=== PATIENT | female | born 1990 ===

== ENCOUNTER 2023-01-17 11:48 | Emergency (ER) | payer BC, SELFPAY ==
--- NOTE | ~2023-01-17 | US_ITS ---
EXAMINATION: US OBSTETRICAL ULTRASOUND CLINICAL INFORMATION: Pelvic pain. Question ectopic . COMPARISON: None available. LMP: November 30, 2022. Gestational age by maternal dates is 6 weeks 6 days. Estimated date of delivery by maternal dates is September 06, 2023. TECHNIQUE: Ultrasound of the maternal pelvis is performed using transabdominal and transvaginal transducers. Transvaginal imaging is performed due to inadequate visualization transabdominally. M-mode Doppler is also performed. FINDINGS: There is a single intrauterine gestational sac with visible yolk sac, embryo/fetus, and cardiac activity. There is no significant subchorionic hemorrhage or hematoma. HR: 96 beats per minute. CRL (crown rump length): 0.25 cm (5 weeks 6 days +/- 4 days). JAVIER (estimated date of delivery): September 13, 2023 +/- 4 days. Gestational sac, yolk sac, and pole visualized. No multiple gestations identified. MATERNAL ADNEXA: The right maternal ovary measures 3.5 x 2.4 x 2.4 cm. 2.2 x 1.0 x 1.7 cm corpus luteum cyst present. The left maternal ovary measures 1.9 x 1.1 x 1.1 cm. No abnormal left ovarian findings. There is no significant maternal adnexal mass. No maternal pelvic ascites. US/US OB pelvic and transvaginal IMPRESSION: 1. Single intrauterine gestation with ultrasound gestational age of 5 weeks 6 days +/- 4 days. 2. Estimated date of delivery is September 13, 2023 +/- 4 days. 3. No maternal adnexal mass or pelvic ascites. 4. bradycardia.
--- NOTE | ~2023-01-17 | US_ITS ---
ULTRASOUND ABDOMEN LIMITED, RIGHT LOWER QUADRANT Clinical indication: Right lower quadrant pain. Evaluate for appendicitis. Comparison: None. Technique: Sagittal and transverse scans of the right lower quadrant were performed using a linear high resolution transducer with graded compression technique, olson scale and color Doppler evaluation. FINDINGS: The appendix could not be confidently visualized. No free fluid in the right lower quadrant. US/US appendix Impression: Nondiagnostic ultrasound for appendicitis. Appendix not visualized. Recommend close clinical followup. Contrast enhanced CT scan may be considered for further evaluation.
--- NOTE | ~2023-01-17 | US_ITS ---
EXAMINATION: US RETROPERITONEAL LIMITED (RENAL ONLY) CLINICAL INFORMATION: Bilateral flank tenderness. COMPARISON: None available. TECHNIQUE: Real-time imaging of the kidneys. FINDINGS: RIGHT KIDNEY: 11.8 x 4.0 x 4.6 cm (SAG x AP x TRV). The kidney is normal in size, contour, and echogenicity. Renal cortical thickness is normal. No calculi or focal parenchymal lesions. No hydronephrosis. LEFT KIDNEY: 11.3 x 6.0 x 5.2 cm (SAG x AP x TRV). The kidney is normal in size, contour, and echogenicity. Renal cortical thickness is normal. No calculi or focal parenchymal lesions. No hydronephrosis. US/US renal BI IMPRESSION: Unremarkable examination.
[2023-01-17 11:55] VITALS: BP 106/71; PULSE 87; RESP 18; TEMP 37; O2SAT 100; BMI 19.3
--- NOTE | 2023-01-17 11:59 | ED.GENADULT ---
HPI - General Adult General Chief complaint: Urogenital-Female Stated complaint: Ectopic ? 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 She states that her pain has been present since she determined that she was but it has worsened over the past few days. She reports external vaginal itching and burning radiating into vagina and perineal area. She also reports dysuria. She reports right lower back pain and sweats/chills, states I never get a fever. She denies any rashes or lesions to groin. Does report increased vaginal discharge with slight foul smell, was told by OIL SPRAYER that increased discharge was normal. Denies vaginal bleeding. Has not had prior ultrasound. She reports mild nausea, denies vomiting or diarrhea. Reports diffuse abdominal pain. MD complaint: vaginal pain Onset (ago): week(s) Location: genitals Radiation: back Severity scale (1-10): 10 Quality: burning Pain Consistency: constant Relieving factors: none Exacerbating factors: movement Associated symptoms: nausea/vomiting (+ nausea, denies vomiting) Treatments prior to arrival: none Related Data Previous Rx's Medication Instructions Recorded cephalexin 500 mg capsule 500 mg PO QID #28 caps 01/17/23 clotrimazole 1 % vaginal cream 1 appful vaginal BEDTIME 7 days 01/17/23 #45 grams Allergies Allergy/AdvReac Type Severity Reaction Status Date / Time chlorhexidine Allergy Rash Verified 01/17/23 11:55 ibuprofen Allergy Vomiting Verified 01/17/23 11:55 Iodinated Contrast Media Allergy Rash Verified 01/17/23 11:55 [Contrast Dye] nitrofurantoin Allergy Unknown Verified 01/17/23 11:55 [From Macrobid] Review of Systems Review of Systems: As per HPI. Yes all other systems are reviewed and are negative Constitutional: Constitutional: Reports as per HPI PMFSH Social History Social History Alcohol intake: never Smoked in Last 30 Days: No Advance Directives: No Advance Directives Information Provided: No Patient : Yes Physical Exam ED Vital Signs: Vital Signs - 24 hr 01/17/23 11:55 01/17/23 12:20 01/17/23 14:29 Temperature 98.6 F 98.4 F Pulse Rate 87 77 78 Respiratory Rate 18 18 10 L Blood Pressure 106/71 114/62 99/59 L Pulse Oximetry 100 100 99 Oxygen Delivery Method Room Air Room Air Room Air 01/17/23 18:00 Temperature Pulse Rate 75 Respiratory Rate 18 Blood Pressure 101/57 L Pulse Oximetry 98 Oxygen Delivery Method Room Air BMI result Body Mass Index 19.3 Vital signs have been reviewed and appear to be correct. Blood pressure normal. Heart rate normal. Respiratory rate normal. Temperature normal. Oxygen saturation normal. Const General: cooperative and healthy appearing; No comfortable Orientation/consciousness: oriented to person, oriented to place, oriented to time and patient oriented x3 Limitations: no limitations HENMT Head: Yes normocephalic and Yes atraumatic Ears: external ears normal General nose exam: Normal external nose present Face and sinus: Yes face symmetric Mouth: oropharynx normal and moist mucous membranes Throat: Yes uvula midline Eyes Pupils: Equal, round and reactive pupils present Neck Neck: Yes normal visual inspection and Yes supple Resp Effort & Inspection: normal respiratory effort and able to speak in complete sentences Auscultation: clear to auscultation bilaterally Cardio Rate: regular rate Rhythm: regular rhythm Heart sounds: S1 normal heart sound present and S2 normal heart sound present GI Other: Chaperoned by TOM Licona. Inspection: Yes normal to inspection Palpation (GI): Soft to palpation and Tenderness to palpation present (GI) in the LLQ, in the RLQ, in the LUQ and in the RUQ; with no rebound tenderness Auscultation: normoactive bowel sounds Other: Chaperoned by TOM Licona. Unable to perform bimanual exam due to patient discomfort. General: Yes no CVA tenderness External Female Exam: normal external appearance and No lesion Speculum Exam - Vagina: abnormal vaginal discharge yellow; not malodorous and not boody, erythematous, no lacerations, no lesions, No vaginal bleeding, No tissue present in vagina, no masses, no swelling and tenderness bilaterally Speculum Exam - Cervix: Cervical os closed, Abnormal cervical discharge present yellow; not bloody, without tissue and malodorous, no lesions, no masses and Cervical tenderness present Bimanual exam- vagina & uterus: Cervical tenderness present OB/external & speculum: no tissue noted in vagina and vaginal bleeding Back/Spine/Pelvis Back: no CVA tenderness Skin General skin exam: elasticity normal and turgor normal Neuro General: oriented to person, oriented to place, oriented to time, patient oriented x3, moves all extremities, no focal motor deficits and CN's II-XI intact bilaterally Cranial nerves: Yes Equal, round and reactive pupils present Cognition (Neuro): normal cognition Extrem General: Yes full ROM, Yes no pedal edema and Yes no calf tenderness Psych Mental Status: mental status grossly normal Affect: normal affect Thought process: Normal thought process present Course Course Course Narrative: RmE: 7 weeks pregant . Presents to the ED for low abdominal crampin and vaginal discomfort for a few days. no vaginal bleeding. patient has no yet had ultrasound. Labs and Abdominal Ultraouns ordered. 13:56 Trace leukocytes on UA, no nitrites, no bacteria seen, unlikely UTI, negative trichamonas. Awaiting US results. 14:26 FINDINGS: There is a single intrauterine gestational sac with visible yolk sac, embryo/fetus, and cardiac activity.? There is no significant subchorionic hemorrhage or hematoma. HR:? 96 beats per minute. CRL (crown rump length): ? 0.25 cm (5 weeks 6 days +/- 4 days). JAVIER (estimated date of delivery):? September 13, 2023 +/- 4 days. ? Gestational sac, yolk sac, and pole visualized. No multiple gestations identified. MATERNAL ADNEXA: ? ? The right maternal ovary measures 3.5 x 2.4 x 2.4 cm.? 2.2 x 1.0 x 1.7 cm corpus luteum cyst present. The left maternal ovary measures 1.9 x 1.1 x 1.1 cm.? No abnormal left ovarian findings. There is no significant maternal adnexal mass.? No maternal pelvic ascites. US/US OB pelvic and transvaginal IMPRESSION: 1. Single intrauterine gestation with ultrasound gestational age of? 5 weeks 6 days +/- 4 days. 2. Estimated date of delivery is September 13, 2023 +/- 4 days. 3. No maternal adnexal mass or pelvic ascites. 4. bradycardia. [place] text to Dr. Carpenter. He feels PID is unlikely, recommends further imaging to rule out appendicitis/nephrolithiasis. 16:43 FINDINGS: RIGHT KIDNEY: 11.8 x 4.0 x 4.6 cm (SAG x AP x TRV). The kidney is normal in size, contour, and echogenicity. Renal cortical thickness is normal. No calculi or focal parenchymal lesions. No hydronephrosis. LEFT KIDNEY: 11.3 x 6.0 x 5.2 cm (SAG x AP x TRV). The kidney is normal in size, contour, and echogenicity. Renal cortical thickness is normal. No calculi or focal parenchymal lesions. No hydronephrosis. US/US renal BI IMPRESSION: Unremarkable examination. FINDINGS: The appendix could not be confidently visualized. No free fluid in the right lower quadrant. US/US appendix Impression: ? Nondiagnostic ultrasound for appendicitis.? Appendix not visualized.? ? Recommend close clinical followup. Contrast enhanced CT scan may be considered for further evaluation. ? Low suspicion for appendicitis as patient is afebrile, no leukocytosis. Patient now disclosing to RN that she has chronic constipation and has also been taking vitamins with iron. She has been using a stool softner but has continued to have constipation. [place] text to Dr. Carpenter with results. He states he will come to ED for evaluation. 18:26 Dr. Carpenter recommends treating for UTI given dysuria and trace leukocytes on UA. Prescribed Keflex. He also recommends treating for vulvovaginal candidiasis., prescribed clotrimazole vaginal cream. Return/follow up precautions discussed with patient for threatened . All questions answered and all results reviewed with patient. She is agreeable to plan and will follow up with her OIL SPRAYER in [place]. 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 On exam patient appears uncomfortable, awake, A+Ox3, VS WNL, normal neurological exam without focal deficits, abdomen soft, diffusely tender, bilateral CVA tenderness, cervix tender with yellow discharge, no rashes or lesions. Concern for UTI/pyelonephritis, STI, uterine , possible ectopic , ovarian cyst or torsion, TOA, constipation. Less likely appendicitis, diverticulitis. Plan: labs, UA, pelvic exam, CT NG, trichomonas, BV, ultrasound Please refer to course for remaining clinical decision making. Differential Diagnosis Differential Diagnoses: The differential diagnosis associated with the presentation includes As above Consult Healthcare Provider Management of the patient was discussed with: Mixer Blender (Dr. Carpenter) Lab Data [facility] Lab Attestation statement: I reviewed the patient's lab results. 01/17/23 12:14 01/17/23 12:14 Labs: Lab Results 01/17/23 01/17/23 01/17/23 Range/Units 12:14 12:14 12:14 WBC 4.9 (4.8-10.8) X10*3/uL RBC 3.94 L (4.20-5.50) X10*6/uL Hgb 12.2 (12.0-16.0) g/dl Hct 37.0 (37.0-47.0) % MCV 93.9 (80.0-98.0) fL MCH 31.0 (27.0-33.0) pg MCHC 33.0 (31.0-35.0) g/dl RDW 11.9 (11.0-16.0) % Plt Count 227 (160-400) X10*3/uL MPV 9.3 L (9.4-12.3) fL Immature Gran % (Auto) 0.4 (0.0-0.4) % Neut % (Auto) 60.8 (45-73) % Lymph % (Auto) 28.6 (20-40) % [place] % (Auto) 8.4 (2-11) % Eos % (Auto) 0.8 (0-4) % Baso % (Auto) 1.0 (0-2) % Lymph # (Auto) 1.4 (1.2-4.9) X10*3/uL [place] # (Auto) 0.4 (0.1-1.2) X10*3/uL Eos # (Auto) 0.0 (0.0-0.4) X10*3/uL Baso # (Auto) 0.1 (0.0-0.2) X10*3/uL Abs Immat Gran (auto) 0.02 (0.00-0.03) X10*3/uL Absolute Neuts (auto) 3.0 (2.0-8.3) x10*3/uL Absolute Nucleated RBC 0.000 (0.0-0.012) X10*3/uL Nucleated RBC % (auto) 0.0 (0.0-0.2) /100WBC PT 11.5 (10.0-13.1) SEC INR 1.0 (0.9-1.1) APTT 32.7 (26.0-36.4) SEC Sodium 141 (135-145) mmol/L Potassium 3.8 (3.3-5.1) mmol/L Chloride 108 (96-108) mmol/L Carbon Dioxide 25 (22-29) mmol/L Anion Gap 12 (12-20) BUN 6 L (9-16) mg/dL Creatinine 0.63 (0.5-1.4) mg/dL Estim Creat Clear Calc 115.2 Estimated GFR > 60 Random Glucose 89 (60-115) mg/dL Calcium 9.7 (8.4-10.2) mg/dL Total Bilirubin 2.2 H (0.0-1.0) mg/dL AST 17 (5-31) U/L ALT 14 (0-31) U/L Alkaline Phosphatase 47 (39-117) U/L Total Protein 7.4 (6.5-8.0) g/dL Albumin 4.5 (3.5-5.0) g/dL Beta HCG, Quant 66876 mIU/mL Urine Color Urine Appearance Urine pH (5.0-9.0) Ur Specific [place] (1.005-1.025) Urine Protein (Neg-Trace) mg/dL Urine Glucose (UA) (Negative) mg/dL Urine Ketones (Negative) mg/dL Urine Blood (Negative) Urine Nitrite (Negative) Ur Leukocyte Esterase (Negative) Urine RBC (0-2) /HPF Urine WBC (0-5) /HPF Ur Squamous Epith Cells (0-2) /HPF Urine Bacteria (None Seen) Hyaline Casts (0-2) /LPF Urine Test (NEGATIVE) Chlam trachomat DNA PCR (Not Detect.) N.gonorrhoeae DNA (PCR) (Not Detect.) Blood Type 01/17/23 01/17/23 01/17/23 Range/Units 12:14 13:29 13:29 WBC (4.8-10.8) X10*3/uL RBC (4.20-5.50) X10*6/uL Hgb (12.0-16.0) g/dl Hct (37.0-47.0) % MCV (80.0-98.0) fL MCH (27.0-33.0) pg MCHC (31.0-35.0) g/dl RDW (11.0-16.0) % Plt Count (160-400) X10*3/uL MPV (9.4-12.3) fL Immature Gran % (Auto) (0.0-0.4) % Neut % (Auto) (45-73) % Lymph % (Auto) (20-40) % [place] % (Auto) (2-11) % Eos % (Auto) (0-4) % Baso % (Auto) (0-2) % Lymph # (Auto) (1.2-4.9) X10*3/uL [place] # (Auto) (0.1-1.2) X10*3/uL Eos # (Auto) (0.0-0.4) X10*3/uL Baso # (Auto) (0.0-0.2) X10*3/uL Abs Immat Gran (auto) (0.00-0.03) X10*3/uL Absolute Neuts (auto) (2.0-8.3) x10*3/uL Absolute Nucleated RBC (0.0-0.012) X10*3/uL Nucleated RBC % (auto) (0.0-0.2) /100WBC PT (10.0-13.1) SEC INR (0.9-1.1) APTT (26.0-36.4) SEC Sodium (135-145) mmol/L Potassium (3.3-5.1) mmol/L Chloride (96-108) mmol/L Carbon Dioxide (22-29) mmol/L Anion Gap (12-20) BUN (9-16) mg/dL Creatinine (0.5-1.4) mg/dL Estim Creat Clear Calc Estimated GFR Random Glucose (60-115) mg/dL Calcium (8.4-10.2) mg/dL Total Bilirubin (0.0-1.0) mg/dL AST (5-31) U/L ALT (0-31) U/L Alkaline Phosphatase (39-117) U/L Total Protein (6.5-8.0) g/dL Albumin (3.5-5.0) g/dL Beta HCG, Quant mIU/mL Urine Color Yellow Urine Appearance Clear Urine pH 6.5 (5.0-9.0) Ur Specific [place] <= 1.005 (1.005-1.025) Urine Protein Negative (Neg-Trace) mg/dL Urine Glucose (UA) Negative (Negative) mg/dL Urine Ketones Negative (Negative) mg/dL Urine Blood Negative (Negative) Urine Nitrite Negative (Negative) Ur Leukocyte Esterase Trace H (Negative) Urine RBC 0-2 (0-2) /HPF Urine WBC 6-10 H (0-5) /HPF Ur Squamous Epith Cells 0-2 (0-2) /HPF Urine Bacteria None Seen (None Seen) Hyaline Casts 0-2 (0-2) /LPF Urine Test POSITIVE H (NEGATIVE) Chlam trachomat DNA PCR (Not Detect.) N.gonorrhoeae DNA (PCR) (Not Detect.) Blood Type O Positive 01/17/23 Range/Units 13:29 WBC (4.8-10.8) X10*3/uL RBC (4.20-5.50) X10*6/uL Hgb (12.0-16.0) g/dl Hct (37.0-47.0) % MCV (80.0-98.0) fL MCH (27.0-33.0) pg MCHC (31.0-35.0) g/dl RDW (11.0-16.0) % Plt Count (160-400) X10*3/uL MPV (9.4-12.3) fL Immature Gran % (Auto) (0.0-0.4) % Neut % (Auto) (45-73) % Lymph % (Auto) (20-40) % [place] % (Auto) (2-11) % Eos % (Auto) (0-4) % Baso % (Auto) (0-2) % Lymph # (Auto) (1.2-4.9) X10*3/uL [place] # (Auto) (0.1-1.2) X10*3/uL Eos # (Auto) (0.0-0.4) X10*3/uL Baso # (Auto) (0.0-0.2) X10*3/uL Abs Immat Gran (auto) (0.00-0.03) X10*3/uL Absolute Neuts (auto) (2.0-8.3) x10*3/uL Absolute Nucleated RBC (0.0-0.012) X10*3/uL Nucleated RBC % (auto) (0.0-0.2) /100WBC PT (10.0-13.1) SEC INR (0.9-1.1) APTT (26.0-36.4) SEC Sodium (135-145) mmol/L Potassium (3.3-5.1) mmol/L Chloride (96-108) mmol/L Carbon Dioxide (22-29) mmol/L Anion Gap (12-20) BUN (9-16) mg/dL Creatinine (0.5-1.4) mg/dL Estim Creat Clear Calc Estimated GFR Random Glucose (60-115) mg/dL Calcium (8.4-10.2) mg/dL Total Bilirubin (0.0-1.0) mg/dL AST (5-31) U/L ALT (0-31) U/L Alkaline Phosphatase (39-117) U/L Total Protein (6.5-8.0) g/dL Albumin (3.5-5.0) g/dL Beta HCG, Quant mIU/mL Urine Color Urine Appearance Urine pH (5.0-9.0) Ur Specific [place] (1.005-1.025) Urine Protein (Neg-Trace) mg/dL Urine Glucose (UA) (Negative) mg/dL Urine Ketones (Negative) mg/dL Urine Blood (Negative) Urine Nitrite (Negative) Ur Leukocyte Esterase (Negative) Urine RBC (0-2) /HPF Urine WBC (0-5) /HPF Ur Squamous Epith Cells (0-2) /HPF Urine Bacteria (None Seen) Hyaline Casts (0-2) /LPF Urine Test (NEGATIVE) Chlam trachomat DNA PCR NOT DETECTED (Not Detect.) N.gonorrhoeae DNA (PCR) NOT DETECTED (Not Detect.) Blood Type Independent Interpretation I performed an independent interpretation of an: Ultrasound Interpretation: I independently reviewed the U/S and agree with the radiologist's interpretation. Radiology Impression Discussion of test interpretation with radiology: I have reviewed the radiologist's reading. Radiologist Impression: I independently reviewed the ultrasounds and agree with the radiologist's interpretation. External Record Review External record reviewed: Inpatient record, Office record and Outpatient record Prescription Management I considered prescription management with: Pain Medication Discharge Plan Discharge Clinical Impression: , threatened, UTI (urinary tract infection), Vulvovaginal candidiasis Patient Disposition: Home, Self-Care Instructions: Threatened Miscarriage (ED), Urinary Tract Infection in Women (DC), Yeast Infection (ED), Urinary Tract Infection in (ED) Additional Instructions: Please return to your nearest emergency department if you develop worsening pain, you pass material that looks like tissue or large clots, you feel weak or lightheaded, you have vaginal bleeding that soaks more than one pad per hour, you develop fever 100.4F or greater, or any other concerning symptoms. Please follow up with your OIL SPRAYER as soon as you return home to [place]. Prescriptions: New cephalexin 500 mg capsule 500 mg PO QID Qty: 28 0RF clotrimazole 1 % cream 1 appful vaginal BEDTIME 7 Days Qty: 45 0RF
[2023-01-17] MEDS: Acetaminophen 325 MG TABLET 975 MG PO (12:07)
[2023-01-17 12:20] VITALS: BP 114/62; PULSE 77; RESP 18; TEMP 36.9; O2SAT 100
[2023-01-17 12:20] LABS: MANUAL DIFF FLAG NO
[2023-01-17 12:22] LABS: Basophils Absolute Auto 0.1 X10*3/uL (0.0-0.2); Eosinophils Percent Auto 0.8 % (0-4); Hemoglobin 12.2 g/dl (12.0-16.0); Imm Gran Abs Auto 0.02 X10*3/uL (0.00-0.03); Imm Gran Pct Auto 0.4 % (0.0-0.4); Lymphocytes Absolute Auto 1.4 X10*3/uL (1.2-4.9); Lymphocytes Percent Auto 28.6 % (20-40); Mean Corpuscular Volume 93.9 fL (80.0-98.0); Mean Platelet Volume 9.3 fL (9.4-12.3); Monocytes Absolute Auto 0.4 X10*3/uL (0.1-1.2); Monocytes Percent Auto 8.4 % (2-11); Neutrophils Percent Auto 60.8 % (45-73); Platelet Count 227 X10*3/uL (160-400); Red Blood Count 3.94 X10*6/uL (4.20-5.50); Red Cell Distribution Width 11.9 % (11.0-16.0); White Blood Count 4.9 X10*3/uL (4.8-10.8)
[2023-01-17 12:26] LABS: Prothrombin Time 11.5 SEC (10.0-13.1)
[2023-01-17 12:29] LABS: Partial Thromboplastin Time 32.7 SEC (26.0-36.4)
[2023-01-17] MEDS: Ondansetron ODT 4 MG TAB.RAPDIS TRANSLINGU (12:32)
[2023-01-17 12:46] LABS: Alanine Aminotransferase 14 U/L (0-31); Albumin Level 4.5 g/dL (3.5-5.0); Alkaline Phosphatase 47 U/L (39-117); Anion Gap 12 (12-20); Aspartate Amino Transferase 17 U/L (5-31); Bilirubin Total 2.2 mg/dL (0.0-1.0); Blood Urea Nitrogen 6 mg/dL (9-16); Calcium 9.7 mg/dL (8.4-10.2); Carbon Dioxide 25 mmol/L (22-29); Chloride 108 mmol/L (96-108); Creatinine Clr Calc Pharmacy 115.2; Estimated Glomerular Filt Rate > 60; Glucose Random 89 mg/dL (60-115); Potassium 3.8 mmol/L (3.3-5.1); Sodium 141 mmol/L (135-145); Total Protein 7.4 g/dL (6.5-8.0)
[2023-01-17 13:07] LABS: HCG Quantitative 46635 mIU/mL
[2023-01-17 13:44] LABS: UPreg QC Valid YES; Urine Pregnancy POSITIVE (NEGATIVE)
[2023-01-17 13:46] LABS: Appearance Urine Clear; Color Urine Yellow; Glucose Urine UA Negative (Negative); Leukocyte Esterase Urine Trace (Negative); Nitrite Urine Negative (Negative); PH 6.5 (5.0-9.0); Specific Gravity - Urine <= 1.005 (1.005-1.025); UMIC TRIGGER UACC YES; Urine Blood Negative (Negative); Urine Ketones Negative (Negative); Urine Protein Negative (Neg-Trace)
[2023-01-17 13:51] LABS: Bacteria Urine None Seen (None Seen); Hyaline Casts Urine 0-2 /LPF (0-2); RBC Urine 0-2 /HPF (0-2); Squamous Epithelial Cell Urine 0-2 /HPF (0-2); UACC Culture Trigger YES
[2023-01-17 14:29] VITALS: BP 99/59; PULSE 78; RESP 10; O2SAT 99
[2023-01-17 15:13] LABS: CT PCR NOT DETECTED (Not Detect.); NG PCR NOT DETECTED (Not Detect.)
[2023-01-17 18:00] VITALS: BP 101/57; PULSE 75; RESP 18; O2SAT 98
--- NOTE | 2023-01-17 19:11 | PM.GYNCN ---
SALES DEPARTMENT MANAGER - CN: HPI Data of Consult Consult date: 01/17/23 Primary Care Provider: Unknown Physician Consult Narrative Narrative: I was consulted on Maryann Wang is a 32 year old female presenting to the emergency room complaining of pelvic crampy abdominal pain radiating to the back with no associated vaginal bleeding, in addition the patient is complaining of urinary frequency, dysuria and vaginal burning.? cc:: CC: OB [facility] Social History Social History Alcohol intake: never Smoked in Last 30 Days: No Advance Directives: No Advance Directives Information Provided: No Patient : Yes Meds Allergies Allergy/AdvReac Type Severity Reaction Status Date / Time chlorhexidine Allergy Rash Verified 01/17/23 11:55 ibuprofen Allergy Vomiting Verified 01/17/23 11:55 Iodinated Contrast Media Allergy Rash Verified 01/17/23 11:55 [Contrast Dye] nitrofurantoin Allergy Unknown Verified 01/17/23 11:55 [From Macrobid] SALES DEPARTMENT MANAGER Physical Exam Vitals Vital signs: Temp Pulse Resp BP Pulse Ox O2 Del Method 98.4 F 75 18 101/57 L 98 Room Air 01/17/23 12:20 01/17/23 18:00 01/17/23 18:00 01/17/23 18:00 01/17/23 18:00 01/17/23 18:00 BMI result Body Mass Index 19.3 Abdomen Auscultation/Inspection/Palpation: Non-distended and No tenderness Female Genitalia (Pelvic) Bladder/Urethra: Normal meatus Vulva: No lesions Lesion: Pustule Vagina: Nontender Cervix: Grossly normal Uterus: Normal size Adnexa/Parametria: Adnexal Tenderness: None, Adnexal Mass: None, Parametrial Tenderness: None and Parametrial Mass: None SALES DEPARTMENT MANAGER - Results Labs 01/17/23 12:14 01/17/23 12:14 Labs: Short CBC 01/17/23 Range/Units 12:14 WBC 4.9 (4.8-10.8) X10*3/uL Hgb 12.2 (12.0-16.0) g/dl Hct 37.0 (37.0-47.0) % Plt Count 227 (160-400) X10*3/uL BMP 01/17/23 12:14 Sodium 141 Potassium 3.8 Chloride 108 Carbon Dioxide 25 BUN 6 L Creatinine 0.63 Calcium 9.7 Liver Function 01/17/23 Range/Units 12:14 Total Bilirubin 2.2 H (0.0-1.0) mg/dL AST 17 (5-31) U/L ALT 14 (0-31) U/L Alkaline Phosphatase 47 (39-117) U/L Albumin 4.5 (3.5-5.0) g/dL Urine 01/17/23 01/17/23 Range/Units 13:29 13:29 Urine Color Yellow Urine Appearance Clear Urine pH 6.5 (5.0-9.0) Ur Specific [place] <= 1.005 (1.005-1.025) Urine Protein Negative (Neg-Trace) mg/dL Urine Glucose (UA) Negative (Negative) mg/dL Urine Test POSITIVE H (NEGATIVE) Imaging US - abdomen: Radiologist's impression: ITS Impressions Pelvic/Transvag US 01/17/23 13:02 IMPRESSION: 1. Single intrauterine gestation with ultrasound gestational age of 5 weeks 6 days +/- 4 days. 2. Estimated date of delivery is September 13, 2023 +/- 4 days. 3. No maternal adnexal mass or pelvic ascites. 4. bradycardia. Appendix Ultrasound 01/17/23 15:27 Impression: Nondiagnostic ultrasound for appendicitis. Appendix not visualized. Recommend close clinical followup. Contrast enhanced CT scan may be considered for further evaluation. Renal Ultrasound 01/17/23 15:32 IMPRESSION: Unremarkable examination. Assessment and Plan (1) , threatened: Status: Acute Discussed with the patient her signs and symptoms are pointing towards treatened ab, sab warnings given to the patient, she is to come back to the emergency room in case of abdominal pain, vaginal bleeding, nausea or vomiting (2) Vulvovaginal candidiasis: Status: Acute Recommended the following treatment Terazol 0.8% q.h.s. for 7 days (3) UTI (urinary tract infection): Status: Acute Recommended the following: Treat for UTI, send urine for culture, signs symptoms of pyelonephritis to be given to the patient, she is to come back in case of fever, flank pain, nausea or vomiting. Time Spent With Patient Time: Total time managing care of this patient today ____ minutes.
== END 2023-01-17 19:08 | disposition home or self-care (01) ==
PROVIDERS: Physician Assistant; Registered Nurse Emergency; Emergency Provider Internal Medicine
DX: O20.0 Threatened abortion (principal); N39.0 Urinary tract infection, site not specified; B37.31 Acute candidiasis of vulva and vagina; Z3A.01 Less than 8 weeks gestation of pregnancy; Z79.899 Other long term (current) drug therapy
CPT/HCPCS: 0353U; 36415; 76705; 76775; 76801; 76817; 80053; 81001; 81025; 84702; 85025; 85610; 85730; 86900; 86901; 87086; 87480; 87510; 87660; 99284